=== PATIENT | female | born 1975 ===

== ENCOUNTER 2020-12-27 05:27 | Day surgery (SDC) | payer OTHER ==
[~2020-12-27 05:27] MED LIST: COZAAR50 MG PO; KEPPRA500 MG PO
[2020-12-27] MEDS ORDERED: PERCOCET 5-3251 EACH PO (08:24)
[2020-12-27] MEDS ORDERED: RECTICARE30 GM TOP (08:24)
== END 2020-12-27 13:10 | disposition home or self-care (01) ==
LOC: CIR.AMB 05:27
PROVIDERS: ATTEND Surgery
DX: K64.8 Other hemorrhoids (principal); Z20.822 Contact with and (suspected) exposure to COVID-19